=== PATIENT | female | born 1965 | race Caucasian/White ===

== ENCOUNTER 2021-08-25 10:39 | Outpatient (CLI) | payer MEDICAID, SELFPAY ==
--- NOTE | 2021-08-25 10:56 | CT_ITS ---
WS: [id number] LDCT LUNG CANCER SCREENING TECHNIQUE: Noncontrast CT of the chest with coronal and sagittal reformatted images. CLINICAL INFORMATION: HX OF TOBACCO USE COMPARISON: None. DLP: 73.59 mGy.cm DIvol: Mean CTDIvol: 1.60 (mGy) All CT scans at [facility] use at least one of these dose optimization techniques: automat ed exposure control; mA and/or kV adjustment per patient size (includes targeted exams where dose is matched to clinical indication); or iterative reconstruction. FINDINGS: Normal caliber thoracic aorta. No mediastinal or hilar lymphadenopathy. No axillary lymphadenopathy. Normal GE junction. Mild chronic appearing compression deformities of a few upper thoracic vertebral bodies. Mild chronic emphysematous changes. Hazy indeterminate solid groundglass opacity in the RIGHT upper l obe measuring 14 mm. This is indeterminant and neoplasm not excluded. Recommend further evaluation wi th PET/CT. This is not amenable to CT-guided biopsy. Additional 3 mm noncalcified nodule RIGHT upper lobe. CT/CT lung screening [id number] IMPRESSION: Recommend PET CT of the semisolid hazy groundglass opacity RIGHT up per lobe. LUNG-RADS: 4B-Suspicious FOLLOW UP: PET/CT recommended
== END 2021-08-25 10:40 | disposition home or self-care (01) ==
PROVIDERS: PCP Nurse Practitioner Family; Visit Provider Nurse Practitioner Family
DX: Z12.2 Encounter for screening for malignant neoplasm of respiratory organs (principal); Z87.891 Personal history of nicotine dependence; R91.1 Solitary pulmonary nodule
CPT/HCPCS: 71271

== ENCOUNTER → 2021-09-05 13:10 | Outpatient (BNVA) | payer MEDICAID, SELFPAY | PROVIDERS: PCP Nurse Practitioner Family; Visit Provider Internal Medicine | DX: Z01.812 Encounter for preprocedural laboratory examination (principal); Z20.822 Contact with and (suspected) exposure to COVID-19 | CPT/HCPCS: 87635 ==

== ENCOUNTER 2021-09-12 05:36 | Day surgery (SDC) | payer MEDICAID, SELFPAY ==
[2021-09-08 11:00] VITALS: BMI 40.3
[2021-09-12 06:05] VITALS: BP 141/95; PULSE 97; RESP 18; TEMP 36.2; O2SAT 94
[2021-09-12] MEDS: sodium chloride 0.9% 1,000 ML 30 ML IV (06:17)
--- NOTE | 2021-09-12 06:54 | ANES.PREANE2 ---
Pre-Anesthetic Assessment Height/Weight: Height 1.68 m Weight 113.398 kg Temp Pulse Resp BP Pulse Ox 97.2 F L 97 18 141/95 94 09/12/21 06:05 09/12/21 06:05 09/12/21 06:05 09/12/21 06:05 09/12/21 06:05 Preop Diagnosis: Heart burn and screening Operation Date: 09/12/21 07:00 Proposed Procedures p Colonoscopy 91057/[id number]/r12/z12.11(Not Applicable) - Francisco Zazueta MD s EGD(Not Applicable) - Francisco Zazueta MD Was Beta Noemi taken within 24 hours: N/A Was Clonidine taken within 24 hours: N/A Last intake: Intake Last Liquid Date 09/11/21 Last Liquid Time 22:00 Last Solid Date 09/10/21 Last Solid Time 21:00 Social Alcohol and Tobacco Rare ETOH Exam alert, oriented x 3, clear to auscultation bilaterally and regular rate & rhythm Airway Submandibular: within normal limits Cervical ROM: within normal limits Mallampati: Class II Dentition: chipped Comments: Comments: Multiple missing teeth History/ROS No significant history except as noted and No significant complaints Pulmonary Exertional Dyspnea CV/HEM Hypertension None reported Hepatic None reported GI None reported Metabolic Morbid Obesity [facility] [place] None reported Neuropsych None reported Anesthetic Plan ASA status: 2 Anesthesia: Anesthesia Evaluation and MAC Risk of > 500 ml blood loss (7ml/kg in children): No Medications/Allergies Home Medications Medication Instructions Recorded Confirmed Last Taken Type ibuprofen 200 mg tablet 200 mg PO TID PRN tab 08/15/21 09/12/21 09/11/21 History omeprazole 20 mg capsule,delayed 20 mg PO DAILY 08/15/21 09/12/21 09/11/21 History release simvastatin 40 mg tablet 40 mg PO DAILY 08/15/21 09/12/21 09/11/21 History lisinopril 2.5 mg tablet 2.5 mg PO DAILY 08/17/21 09/12/21 09/11/21 History cephalexin 500 mg capsule 500 mg PO BID 10 Days #20 cap 08/31/21 09/12/21 09/11/21 Rx silver sulfadiazine 1 % topical 1 applic TOPICAL BID #50 g 08/31/21 09/12/21 09/11/21 Rx cream (Silvadene) Allergies Allergy/AdvReac Type Severity Reaction Status Date / Time No Known Allergies Allergy Verified 09/12/21 06:02 Current Medications Generic Name Dose Route Start Last Admin Trade Name Freq PRN Reason Stop Dose Admin Sodium Chloride 1,000 mls @ 30 mls/hr 09/12/21 06:00 09/12/21 06:17 Sodium Chloride 0.9% IV 30 mls/hr .Q24H HALIMA Administration Data Anesthesia Cardiac Studies: No Data to Display
--- NOTE | 2021-09-12 07:17 | P.HP_ITS ---
Same Day Surgery H&P Indication for Procedure/HPI DATE OF PROCEDURE: September 12, 2021 CHIEF COMPLAINT/INDICATIONFOR SURGICAL PROCEDURE: Screening PREOP DIAGNOSIS: Heart burn and screening PLANNED PROCEDURE: Operation Date: 09/12/21 07:00 Proposed Procedures p Colonoscopy [id number]/g0121/r12/z12.11(Not Applicable) - Francisco Zazueta MD s EGD(Not Applicable) - Francisco Zazueta MD Medications/Allergies* Home Medications Medication Instructions Recorded Confirmed Type ibuprofen 200 mg tablet 200 mg PO TID PRN tab 08/15/21 09/12/21 History omeprazole 20 mg capsule,delayed 20 mg PO DAILY 08/15/21 09/12/21 History release simvastatin 40 mg tablet 40 mg PO DAILY 08/15/21 09/12/21 History lisinopril 2.5 mg tablet 2.5 mg PO DAILY 08/17/21 09/12/21 History Allergies/Adverse Reactions Allergy/AdvReac Type Severity Reaction Status Date / Time No Known Allergies Allergy Verified 09/12/21 06:02 Current Medications: Generic Name Dose Route Start Last Admin Trade Name Freq PRN Reason Stop Dose Admin Sodium Chloride 1,000 mls @ 30 mls/hr 09/12/21 06:00 09/12/21 06:17 Sodium Chloride 0.9% IV 30 mls/hr .Q24H HALIMA Administration Pertinent Exam Findings alert, oriented x 3, clear to auscultation bilaterally, regular rate & rhythm, operative site marked and procedure specific exam findings Recommendations Surgery/Procedure today Coding Level of Care Code Acute Quality Improvement Coordinator (Rn) for Samir Ortiz
[2021-09-12 07:42] VITALS: BP 121/90; PULSE 107; RESP 16; TEMP 36.1; O2SAT 94
[2021-09-12 07:56] VITALS: PULSE 90; RESP 18; O2SAT 97
--- NOTE | 2021-09-12 14:25 | ANE.PACU2 ---
Inpatient post-anesthesia follow up: Airway intact: Yes Vital signs: Temperature 97 F Pulse Rate 90 Respiratory Rate 18 Blood Pressure 121/90 Pulse Oximetry 97 Oxygen Delivery Me thod Room Air Oxygen Flow Rate 4 Fraction of Inspir ed Oxygen Hydration adequate: Yes Nausea and vomiting: No Pain level: 1 Mental status: Baseline
[2021-09-13 06:07] LABS: H. Pylori / CLO Test Negative
== END 2021-09-12 08:11 | disposition home or self-care (01) ==
PROVIDERS: PCP Nurse Practitioner Family; Visit Provider Internal Medicine
PROC: 0DJD8ZZ Inspection of Lower Intestinal Tract, Via Natural or Artificial Opening Endoscopic (ICD-10-PCS; CPT 45378; principal; 2021-09-12 07:00)
PROC: 0DJ08ZZ Inspection of Upper Intestinal Tract, Via Natural or Artificial Opening Endoscopic (ICD-10-PCS; CPT 43235; 2021-09-12 07:00)
DX: Z12.11 Encounter for screening for malignant neoplasm of colon (principal); R12 Heartburn; K57.30 Diverticulosis of large intestine without perforation or abscess without bleeding; D12.5 Benign neoplasm of sigmoid colon; K29.70 Gastritis, unspecified, without bleeding; I10 Essential (primary) hypertension; E66.01 Morbid (severe) obesity due to excess calories; Z68.41 Body mass index [BMI] 40.0-44.9, adult
CPT/HCPCS: 43239; 45385; 87077; 88305; J2704; J3490; J7030

== ENCOUNTER → 2021-10-27 13:32 | Outpatient (BNVA) | payer MEDICAID, SELFPAY | PROVIDERS: PCP Nurse Practitioner Family; Visit Provider Thoracic Surgery (Cardiothoracic Vascular Surgery) | DX: R91.8 Other nonspecific abnormal finding of lung field (principal); E66.9 Obesity, unspecified; F17.210 Nicotine dependence, cigarettes, uncomplicated; Z68.41 Body mass index [BMI] 40.0-44.9, adult | CPT/HCPCS: 99203 ==

== ENCOUNTER 2021-10-28 11:47 | Outpatient (CLI) | payer MEDICAID, SELFPAY ==
--- NOTE | 2021-10-28 11:56 | MM_ITS ---
WS: [id number] BILATERAL 3D TOMOSYNTHESIS DIGITAL SCREENING MAMMOGRAPHY WITH CAD CLINICAL INFORMATION: SCREENING HISTORY: Screening mammogram. No current complaints. COMPARISON: TECHNIQUE: Bilateral CC and MLO views. FINDINGS: Scattered fibroglandular densities bilaterally. Stable incidental intramammary lymph in the upper out er LEFT breast. No suspicious focal mass, asymmetry, calcifications, or architectural distortion. No evidence of malignancy. MM/[place] [id number] IMPRESSION: BI-RADS: 2-Benign FOLLOW UP: 1 Year Follow-up Recommend return to annual screening mammography.
== END 2021-10-28 11:48 | disposition home or self-care (01) ==
LOC: RADSHAW 11:48
PROVIDERS: PCP Nurse Practitioner Family; Visit Provider Nurse Practitioner Family
DX: Z12.31 Encounter for screening mammogram for malignant neoplasm of breast (principal)
CPT/HCPCS: 77063; 77067

== ENCOUNTER → 2021-11-24 14:06 | Outpatient (BNVA) | payer MEDICAID, SELFPAY | PROVIDERS: PCP Nurse Practitioner Family; Visit Provider Podiatrist Foot & Ankle Surgery | DX: L60.8 Other nail disorders (principal); M79.671 Pain in right foot; M79.672 Pain in left foot; F17.210 Nicotine dependence, cigarettes, uncomplicated | CPT/HCPCS: 11750; J1100; J3301; J3490 ==

== ENCOUNTER 2022-02-13 08:09 | Outpatient (CLI) | payer MEDICAID, SELFPAY ==
--- NOTE | 2022-02-13 07:30 | XRR_ITS ---
PROCEDURE INFORMATION: Exam: XR Abdomen Exam date and time: 02/13/2022 8:20 AM Age: 56 years old Clinical indication: Condition or disease; Kidney or ureter condition; Calculus (stone) in ureter; Additional info: Calculi, urethra, kub @ ozh on 02/13/22 @ 8. Appt to follow TECHNIQUE: Imaging protocol: Radiologic exam of the abdomen. Views: Frontal supine view of the abdomen. 1 View. COMPARISON: CR XR abdomen min 2V [id number] 01/13/2022 11:09 AM FINDINGS: Gastrointestinal tract: No abnormally dilated air-filled bowel loops identified. Intraperitoneal space: Calcifications again noted in the lower pelvis on the right and left side, unchanged from prior exam. Bones/joints: Previously noted calcification along the right paravertebral region adjacent to the right transverse process of L3 is no longer visualized. Other findings: No significant calculi overlying the region of the kidneys. XR/XR KUB [id number] IMPRESSION: No radiographically evident right renal stones identified.
== END 2022-02-13 08:10 | disposition home or self-care (01) ==
LOC: RAD 08:10
PROVIDERS: PCP Nurse Practitioner Family; Visit Provider Urology
DX: N21.1 Calculus in urethra (principal); R10.9 Unspecified abdominal pain
CPT/HCPCS: 74018; 81003; 99203

== ENCOUNTER 2022-02-16 10:10 | Outpatient (CLI) | payer MEDICAID, SELFPAY ==
--- NOTE | 2022-02-16 10:30 | CT_ITS ---
WS: [id number] CT CHEST AND ABDOMEN WITH CONTRAST HISTORY: LUNG NODULE TECHNIQUE: Axial imaging is performed through the chest and abdomen with IV contrast. Sagittal and co ollie reformats. All CT scans at [facility] use at least one of these dose optimization techn iques: automated exposure control; mA and/or kV adjustment per patient size (includes targeted exams where dose is matched to clinical indication); or iterative reconstruction. CONTRAST: Omnipaque 350; 95 mL IV. DLP: 1435.47 mGy.cm COMPARISON: 08/25/2021, 09/28/[address]: Again noted is a 14 mm area of groundglass attenuation in the periphery of the RIGHT upper lobe. Taki ng into consideration difference in technique probably not changed significantly. The more solid comp onent seen best on the sagittal reformats is 9 mm. No additional mass. No pleural effusion or pericar dial effusion. Small mediastinal and hilar lymph nodes. 9.4 mm in diameter. Very minimal atherosclerotic change within the thoracic aorta. Normal size pulmonary artery. No chest wall abnormality. No destructive bone lesions. Abdomen CT: Diffuse hepatic steatosis. No mass. Normal portal vein. There may be small stones layering the gallbl adder. Spleen is normal. Normal pancreas. Normal adrenal glands. 9 mm cyst lower pole RIGHT kidney. O therwise the kidneys are negative. Atherosclerosis aorta. Mild ectasia and dilatation of the infraren al aorta with a maximum diameter of 2.9 cm. No ascites or adenopathy. The visualized GI tract is negative. L4 anterolisthesis by [address]/CT chest abdomen w con* IMPRESSION: 1. No significant increase in size of the RIGHT upper lobe groundglass attenua tion since 09/28/2021 PET/CT and lung screening CT of 08/25/2021. Recommend angeles nued close interval chest CT follow-up as this groundglass nodule was suspiciou s by PET/CT. 2. No mediastinal or hilar significant adenopathy. Largest node is 9 mm at the RIGHT hilum. 3. Suspect small layering stones in the gallbladder.
[2022-02-16 10:45] LABS: Blood Urea Nitrogen 14 mg/dL (6-20)
[2022-02-16] MEDS: iohexol 350 mg/mL 100 mL Btl IV (10:53)
== END 2022-02-16 10:11 | disposition home or self-care (01) ==
LOC: RAD 10:10
PROVIDERS: PCP Nurse Practitioner Family; Visit Provider Thoracic Surgery (Cardiothoracic Vascular Surgery)
DX: R91.1 Solitary pulmonary nodule (principal)
CPT/HCPCS: 71260; 74160; 82565; 84520

== ENCOUNTER 2022-03-16 13:33 | Outpatient (CLI) | payer MEDICAID, SELFPAY ==
--- NOTE | 2022-03-16 13:46 | XR_ITS ---
WS: [id number] Exam: XR KUB [id number] Date/Time of Exam: 03/16/2022 2:15 PM Reason For Exam: R10.9 - Unspecified abdominal pain No bowel obstruction or free air. No sign of organ enlargement. Regional bony structures appear wes l. Degenerative changes of the lower lumbar spine. Nonspecific pelvic calcifications probably phlebol iths. XR/XR KUB [id number] IMPRESSION: 1. No acute finding.
== END 2022-03-16 13:34 | disposition home or self-care (01) ==
PROVIDERS: PCP Nurse Practitioner Family; Visit Provider Urology
DX: R10.9 Unspecified abdominal pain (principal)
CPT/HCPCS: 74018; 81003

== ENCOUNTER 2022-08-17 12:37 | Outpatient (CLI) | payer MEDICAID, SELFPAY ==
[2022-08-17] MEDS: iohexol 350 mg/mL 500 mL Btl (per mL) IV (14:03)
== END 2022-08-17 12:38 | disposition home or self-care (01) ==
LOC: RAD 12:39
PROVIDERS: PCP Electrodiagnostic Medicine; Visit Provider Thoracic Surgery (Cardiothoracic Vascular Surgery)
DX: Z53.9 Procedure and treatment not carried out, unspecified reason (principal)
CPT/HCPCS: Q9967

== ENCOUNTER 2022-09-05 10:27 | Outpatient (CLI) | payer MEDICAID, SELFPAY ==
--- NOTE | 2022-09-05 10:54 | CT_ITS ---
WS: [id number] CT CHEST WITH INTRAVENOUS CONTRAST HISTORY: lung nodule TECHNIQUE: Contiguous 5 mm axial imaging performed on the thorax. Coronal and sagittal reformats are submitted. All CT scans at [facility] use at least one of these dose optimization techniques: automated exposure control; mA and/or kV adjustment per patient size (includes targeted exams where dose is matched to clinical indication); or iterative reconstruction. CONTRAST: Omnipaque 350; 100 mL IV. DLP: 771.68 mGy.cm COMPARISON: PET CT 09/28/2021, CT chest 02/16/2022 and 08/25/2021 Lungs and central airway: Mild pulmonary hyperexpansion. Paraseptal emphysema. Groundglass nodule in the periphery RIGHT upper lobe measures 13 mm. No increase in size since 08/25/2021. Visually the nodu le appears very slightly greater than may be a slightly greater halo around the lesion but does not m easure larger. Pleura: Normal. No pleural effusion. Heart and pericardium: Normal size heart with no pericardial effusion. Mediastinum and karma: Bilateral hilar lymph nodes with the largest measuring 10 mm on the RIGHT. Thes e are unchanged in size. No adenopathy. Vessels: Normal size aorta and pulmonary artery. Complete occlusion of the proximal LEFT subclavian a rtery from the aorta. Distal LEFT subclavian artery is being supplied by retrograde flow from the LEF T vertebral artery. There is flow within the LEFT subclavian and LEFT axillary arteries but it does a ppear less robust as compared to the RIGHT. Chest wall and lower neck: No soft tissue masses. Upper abdomen: Mild hepatic steatosis. Osseous structures: Mild concave deformity superior endplate of T3 and T4. CT/CT chest w con* [id number] IMPRESSION: 1. No significant increase in size of the 13 mm groundglass nodule RIGHT upper lobe. This was noted to be suspicious on her prior PET/CT from 09/28/2021 for m alignancy. 2. No adenopathy. 3. Complete, chronic occlusion proximal LEFT subclavian artery. Retrograde dmitry w via the LEFT vertebral artery providing flow to the distal LEFT subclavian ar thuy although less robust than the RIGHT. 4. Paraseptal emphysema.
[2022-09-05] MEDS: iohexol 350 mg/mL 500 mL Btl (per mL) IV (11:21)
== END 2022-09-05 10:28 | disposition home or self-care (01) ==
LOC: RAD 10:30
PROVIDERS: PCP Electrodiagnostic Medicine; Visit Provider Thoracic Surgery (Cardiothoracic Vascular Surgery)
DX: R91.1 Solitary pulmonary nodule (principal)
CPT/HCPCS: 71260; Q9967

== ENCOUNTER 2022-12-07 12:26 | Outpatient (CLI) | payer MEDICAID, SELFPAY ==
--- NOTE | 2022-12-07 | ECG_ITS ---
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 Interpretive Statements NAME OF STUDY: TREADMILL STRESS TEST INDICATION: [FAMILY H/O CAD, ] EXERCISE DATA: The patient was exercised by Sterling protocol. Baseline heart rate was 103 beats per minute. Baseline blood pressure was 145/85 millimeters of mercury. Target heart rate was 138 beats per minute. Maximum heart rate achieved was 147, which was 106% of the target heart rate. Maximum blood pressure was 188/106 millimeters of mercury. Total exercise time was 1 minute 55 seconds. Maximum METs achieved was 4.6. The reason for ending the test was completion of protocol and exercise capacity. ELECTROCARDIOGRAM: BASELINE: Showed sinus tachycardia, normal axis, no significant ST-T changes at the baseline noted. [] EXERCISE: At the peak exercise level, [] No significant ST-T changes suggestive of ischemia noted. [] RECOVERY: During the recovery period, heart rate dropped appropriately. No significant ST-T changes in the recovery suggestive of ischemia noted. [] CONCLUSION: 1. Exercise capacity poor. 2. Heart rate response was appropriate 3. Blood pressure response was appropriate 4. Symptoms not suggestive of ischemia. 5. Stress test was not suggestive of ischemia. Electronically Signed On 12-28-2022 9:30:45 CDT by Rey Pacheco M.D. [email or web address]
[2022-12-07 12:47] VITALS: BMI 41.1
[2022-12-07 13:22] VITALS: BP 164/106; PULSE 104
== END 2022-12-07 12:27 | disposition home or self-care (01) ==
LOC: CDL 12:27
PROVIDERS: PCP Electrodiagnostic Medicine; Visit Provider Electrodiagnostic Medicine
DX: Z82.49 Family history of ischemic heart disease and other diseases of the circulatory system (principal)
CPT/HCPCS: 93017

== ENCOUNTER 2023-03-20 13:33 | Outpatient (CLI) | payer MEDICAID, SELFPAY ==
[2023-03-20] MEDS: iohexol 350 mg/mL 500 mL Btl (per mL) IV (13:48)
--- NOTE | 2023-03-20 14:00 | CT_ITS ---
WS: [id number] CT chest w con* [id number] HISTORY: lung mass TECHNIQUE: Axial imaging performed through the thorax. Coronal and sagittal reformats are submitted. All CT scans at [facility] use at least one of these dose optimization techniques: automated exposure control; mA and/or kV adjustment per patient size (includes targeted exams where dose is mat ched to clinical indication); or iterative reconstruction. CONTRAST: Omnipaque 350; 100 mL IV. DLP: 666.47 mGy.cm COMPARISON: 02/16/2022, 09/05/2022 Lungs and central airway: Mild pulmonary hyperinflation. Reidentified is a subsolid nodule measuring 14 mm with adjacent groundglass attenuation in the superior RIGHT lobe. The solid component is 14 mm. Very similar in appearance to the prior studies dating back to 02/16/2022. There is a new micronodule in the superior segment LEFT lower lobe. No additional mass or nodule. No pneumonia. Pleura: Normal. No pleural effusion. Heart and pericardium: Normal size heart with no pericardial effusion. Mediastinum and karma: Mediastinal and hilar lymph nodes are unchanged. These lymph nodes are indeterm inate. There is a RIGHT hilar lymph node measuring 1.9 cm which is similar to 02/16/2022. Vessels: Mild atherosclerosis aorta. No aneurysm. Normal size pulmonary artery. Chest wall and lower neck: No soft tissue masses. Upper abdomen: Hepatic steatosis. Cholelithiasis. No adrenal mass. Osseous structures: No destructive bone lesions. Mild anterior wedging of T3 and T4. IMPRESSION: 1. No change in the subsolid nodule with adjacent groundglass attenuation measuring 14 mm in the RIGH T upper lobe since 02/16/2022. This will need long-term surveillance as this could represent a low-grad e neoplasm. Recommend 6-month chest CT follow-up. 2. New 3 mm micronodule superior segment LEFT lower lobe. 3. Indeterminate but stable mediastinal and hilar lymph nodes. The largest lymph node is 19 mm, uncha nged since 02/16/2022. 4. Cholelithiasis without acute cholecystitis.
== END 2023-03-20 13:34 | disposition home or self-care (01) ==
LOC: RAD 13:36
PROVIDERS: PCP Electrodiagnostic Medicine; Visit Provider Thoracic Surgery (Cardiothoracic Vascular Surgery)
DX: R91.8 Other nonspecific abnormal finding of lung field (principal); K80.20 Calculus of gallbladder without cholecystitis without obstruction
CPT/HCPCS: 71260; Q9967